=== PATIENT | male | born 1995 | race Caucasian/White ===

== ENCOUNTER 2018-01-11 20:33 | Emergency (ER) | payer SELFPAY ==
[~2018-01-11] VITALS: Ht 175.3 cm; Wt 77.3 kg
[2018-01-11 20:37] VITALS: TEMP 97.9
[2018-01-11] MEDS ORDERED: PERCOCET 325 MG1 TA2 PO (21:25)
[2018-01-11 21:49] VITALS: BP 103/62; PULSE 60
== END 2018-01-11 21:58 | disposition home or self-care (01) ==
LOC: COL.ER 20:33 → EDBD 20:34 → COL.ER 20:34
DX: S42.021A Displaced fracture of shaft of right clavicle, initial encounter for closed fracture (principal); W51.XXXA Accidental striking against or bumped into by another person, initial encounter; Y93.66 Activity, soccer; Y92.830 Public park as the place of occurrence of the external cause
CPT/HCPCS: J1885; J3010